=== PATIENT | female | born 1955 | race American Indian/Alaskan Native ===

== ENCOUNTER 2017-06-22 10:03 | Outpatient (CLI) | payer OTHER ==
--- NOTE | 2017-06-22 12:32 | Ultrasound Report ---
ULTRASOUND GUIDED NEEDLE CORE BIOPSY OF A Right AXILLARY LYMPH NODE WITH CLIP PLACEMENT : 06/22/17 10:03:00 CLINICAL: Newly diagnosed right breast cancer with a suspicious right axillary lymph node. COMPARISON :None available. FINDINGS: The procedure was explained to the patient and informed consent was obtained. Ultrasound demonstrated several right axillary lymph nodes with minimal cortical thickening. The skin in the axilla was prepped with Betadine and anesthetized with 1% lidocaine. Ultrasound guided needle core biopsy of the thickest portion of one of the lymph nodes was performed through a small dermatotomy using 2% lidocaine with epinephrine for deep anesthesia and a 18-gauge Achieve biopsy device. 3 samples were obtained and placed in formalin. A clip was deployed within the lymph node. Hemostasis was achieved with minimal pressure and a sterile dressing was applied. The patient tolerated the procedure well and there were no apparent complications. She was discharged in good condition and was given instructions for wound care and followup. IMPRESSION: Uncomplicated ultrasound-guided needle core biopsy of a right axillary lymph node with clip placement.
== END 2017-06-22 10:04 | disposition home or self-care (01) ==
LOC: SPVWC 10:03
PROVIDERS: ATTEND Surgery
DX: C50.411 Malignant neoplasm of upper-outer quadrant of right female breast (principal)
CPT/HCPCS: 38505; 76942; 88305; A4648; 38525

== ENCOUNTER 2017-06-28 15:08 | Outpatient (CLI) | payer OTHER | END 2017-06-28 15:09 | disposition home or self-care (01) | LOC: LABHHL 15:08 | PROVIDERS: ATTEND Surgery | DX: C50.911 Malignant neoplasm of unspecified site of right female breast (principal) | CPT/HCPCS: 88305; 88341; 88342; 88361 ==

== ENCOUNTER 2017-07-03 13:39 | Outpatient (CLI) | payer OTHER ==
--- NOTE | 2017-07-03 14:30 | Ultrasound Report ---
Sonogram left breast: History: Malignant neoplasm of upper outer quadrant right breast. Findings: Normal breast parenchyma. No cystic or solid mass. Benign lymph node measuring 1.8 x 0.8 cm and left axilla. Impression: Essentially negative sonogram.
== END 2017-07-03 13:40 | disposition home or self-care (01) ==
LOC: SPVWC 13:39
PROVIDERS: ATTEND Surgery
DX: C50.411 Malignant neoplasm of upper-outer quadrant of right female breast (principal)

== ENCOUNTER 2017-07-25 09:10 | Observation (INO) | payer OTHER ==
[~2017-07-25 09:10] MED LIST: ANCEF/STERILE WATER 2 GM/20 ML IV NR; NACL 0.9% 1000 ML 1,000 ML IV SCH; NEURONTIN PO NR; PEPCID PO NR; SUBLIMAZE IV ONE; VERSED IV NR
[2017-07-25 10:05] LABS: Basophils % (Auto) 1.1 % (0.0-1.8); Eosinophils % (Auto) 3.2 % (0.0-4.3); Hematocrit 41.2 % (30.3-42.9); Hemoglobin 13.4 gm/dl (10.1-14.3); Mean Corpuscular HGB Conc 32 % (30-34); Mean Corpuscular Hemoglobin 26 pg (28-32); Mean Corpuscular Volume 81 fl (79-97); Platelet Count 351 K/mm3 (140-440); Red Blood Count 5.11 M/mm3 (3.65-5.03); Red Cell Distribution Width 14.6 % (13.2-15.2); White Blood Count 5.4 K/mm3 (4.5-11.0)
[2017-07-25] MEDS ORDERED: ZEMURON IV ONE (10:08)
[2017-07-25] MEDS ORDERED: XYLOCAINE MPF 2% ONE (10:08)
[2017-07-25] MEDS ORDERED: DECADRON ONE ×2 (10:09→12:28)
[2017-07-25] MEDS ORDERED: MARCAINE-EPI 0.5%-1:200,000 INFILTRATI ONE (10:09)
[2017-07-25] MEDS ORDERED: DILAUDID ONE ×2 (10:09→16:34)
[2017-07-25] MEDS ORDERED: DIPRIVAN 10 MG/ML IV ONE (10:09)
--- NOTE | 2017-07-25 10:33 | Anesthesia Day of Surgery ---
Anesthesia Day of Surgery - Day of Surgery Patient Examined: Yes Patient H&P Reviewed: Yes Patient is NPO: Yes
[2017-07-25] MEDS ORDERED: ZOFRAN IV PRN ×2 (10:34→15:48)
[2017-07-25] MEDS ORDERED: DILAUDID IV PRN ×2 (10:34→16:25)
--- NOTE | 2017-07-25 10:34 | Anesthesia Consultation ---
Anesthesia Consult and Med Hx Date of service: 07/25/17 - Airway Anesthetic Teeth Evaluation: Dentures, Edentulous ROM Head & Neck: Adequate Mental/Hyoid Distance: Adequate Mallampati Class: Class II Intubation Access Assessment: Probably Good - Pulmonary Exam CTA: Yes - Cardiac Exam Cardiac Exam: RRR - Pre-Operative Health Status ASA Pre-Surgery Classification: ASA3 Proposed Anesthetic Plan: General Nerve Block: PEC - Pulmonary Hx Smoking: No Hx Asthma: Yes (RARE INHALER USE) Hx Sleep Apnea: No (ANKITA PRE SCREEN LOW RISK.) - Cardiovascular System Hx Hypertension: Yes (X 3 YRS) - Endocrine Hx Renal Disease: No Hx Liver Disease: No Hx Non-Insulin Dependent Diabetes: No Hx Hyperthyroidism: No - Hematic Hx Anemia: No (LOW IRON LEVELS) - Other Systems Hx Cancer: Yes (RIGHT BREAST)
[2017-07-25] MEDS ORDERED: BACITRACIN ONE (11:51)
[2017-07-25] MEDS ORDERED: GARAMYCIN ONE (11:52)
[2017-07-25] MEDS ORDERED: MARCAINE 0.5% 0 ML INFILTRATI ONE (11:53)
[2017-07-25] MEDS ORDERED: MARCAINE 0.25% INFILTRATI ONE (11:53)
[2017-07-25] MEDS ORDERED: XYLOCAINE 1% 20 mL ONE (11:54)
[2017-07-25] MEDS ORDERED: NACL P/F VIAL (10 ML) 10 ML ONE (11:54)
[2017-07-25] MEDS ORDERED: WATER FOR IRRIG STERILE IR ONE (12:00)
[2017-07-25] MEDS ORDERED: NACL P/F VIAL (10 ML) IV ONE (12:00)
[2017-07-25] MEDS ORDERED: METHYLENE BLUE IV ONE (12:00)
[2017-07-25] MEDS ORDERED: ANCEF/STERILE WATER 2 GM/20 ML IV ONE (12:30)
[2017-07-25] MEDS ORDERED: METHYLENE BLUE ONE (12:30)
[2017-07-25] MEDS ORDERED: NACL 0.9% 1000 ML 0 ML ONE (13:33)
--- NOTE | 2017-07-25 13:59 | Mammography Report ---
Specimen radiograph. Findings: A radiograph of 2 specimens is presented. In the larger specimen, there are innumerable pleomorphic microcalcifications centrally as well as 2 central surgical clips. In the second smaller of the 2 specimens, there is no evidence of a clip.
[2017-07-25] MEDS ORDERED: ZOFRAN ONE (14:38)
[2017-07-25] MEDS ORDERED: ROBINUL ONE (14:38)
[2017-07-25] MEDS ORDERED: NEOSTIGMINE ONE (14:38)
--- NOTE | 2017-07-25 14:52 | Operative Report ---
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 Centeno Anesthesia: General Findings: Known right breast cancer mass from the 9:30-12:00 position 1-2 cm from the nipple; 5 SLNs and negative for malignancy on frozen EBL: Minimal Complications: None Disposition: Proceeded with right tissue sanitation manager by Dr. Morales Indications for operative procedure: This is a 62-year-old -[place] lady with newly diagnosed right breast cancer of the upper outer quadrant, DCIS. Recommendations were to proceed with a right total mastectomy and not breast conservation given the size of breast cancer area. Patient wished to proceed with immediate plastic reconstructive surgery as we;;. Patient was consented for the above procedure. Procedure in detail: Anesthesia placed right pectoral muscle block. Patient was taken to the operating room and was laid supine. General anesthesia was administered. Travis catheter was placed. Bilateral breast and right axilla were prepped and draped in the normal sterile operative fashion. The right nipple was injected with radioisotope and with 1 mL of methylene blue dye mixed with saline. Right nipple was massaged. Gamma probe was inserted into the right axilla with area of sentinel lymph node location identified. Typical mastectomy markings were made. Skin incision was made with a 10 blade knife with dissection taken down to the subcutaneous tissues. First beginning raising of the superior flap to the level of the clavicle and posteriorly down to the pectoralis muscle followed by raising of the medial flap to the level of the sternum taken down posteriorly to pectoralis muscle follwed by raising of the lateral flap to the level of the latissimus dorsi muslce taken down posteriorly. Gamma probe was inserted into the axilla and 5 sentinel lymph nodes were identified and dissected free with blue dye present in 3 lymph nodes and sent to pathology with findings negative for malignancy on frozen section. Then continued with raising of the inferior flap to the level of inframammary fold taking down posteriorly to the pectoralis muscle. Mastectomy specimen was removed from the pectoralis muscle without incident. The specimen was appropriately marked and sent to radiology with findings of 2 clips present as well as numerous pleomorphic irregular microcalcifications. Specimen sent to pathology. Breast cavity was irrigated and suctioned. Hemostasis was noted. Dr. Christine then continued with placement of right tissue sanitation manager.
[2017-07-25] MEDS ORDERED: BENADRYL PO PRN (15:48)
[2017-07-25] MEDS ORDERED: SODIUM CHLORIDE FLUSH SYRINGE 10 ML IV PRN (15:48)
[2017-07-25] MEDS ORDERED: REGLAN PO PRN (15:48)
[2017-07-25] MEDS ORDERED: TORADOL IV PRN (15:48)
[2017-07-25] MEDS ORDERED: MOTRIN PO PRN (15:48)
[2017-07-25] MEDS ORDERED: TYLENOL PO PRN (15:48)
--- NOTE | 2017-07-25 15:48 | Post Operative Note ---
Pre-op diagnosis: right breast cancer Post-op diagnosis: same Findings: right mastectomy defect Procedure: right breast reconstruction with tissue veterinary bacteriologist and mesh Anesthesia: GETA Surgeon: VIVIANA MONTIEL Estimated blood loss: minimal Pathology: none Condition: stable Disposition: PACU
[2017-07-25] MEDS ORDERED: MORPHINE IV PRN (16:49)
--- NOTE | 2017-07-25 16:49 | Post Anesthesia Evaluation ---
- Post Anesthesia Evaluation Patient Participated: Yes Airway Patent: Yes Stable Respiratory Function: Yes Nausea/Vomiting: No Temp > 96.8F: Yes Pain Manageable: Yes Adequeate Hydration: Yes Anesthesia Complications: No Block Receding Appropriately: Not Applicable Patient on Ventilator: No
[2017-07-25] MEDS ORDERED: LACTATED RINGERS 1,000 ML ONE (16:58)
[2017-07-25] MEDS: LACTATED RINGERS 1,000 ML IV SCH ×2 (16:58→23:49)
--- NOTE | 2017-07-25 19:55 | Operative Report ---
PREOPERATIVE DIAGNOSIS: Right breast cancer. POSTOPERATIVE DIAGNOSIS: Right breast cancer. PROCEDURE: 1. Right breast reconstruction using tissue sorter packer, CPT code 23658-Y. 2. Implantation of biological mesh, FlexHD for right breast reconstruction, CPT code 66245-T. SURGEON: Flaco Christine MD. EXTRUDER OPERATOR VERTICAL: None. ANESTHESIA: General. OPERATIVE INDICATIONS: The patient is a 62-year-old female who was referred to me for breast reconstructive options. She is planning on undergoing a right mastectomy with Dr. Pedroza and was inquiring about possible reconstruction. She wanted the fastest reconstruction and the quickest recovery possible. We went over all options including delayed versus immediate reconstruction and implant based versus autologous reconstruction. She ultimately selected a tissue sorter packer reconstruction. Risks and benefits were discussed with the patient and she agreed. OPERATIVE DETAILS: After informed consent was obtained, the patient was brought to the operating room and placed supine on the operating table. Preoperative antibiotics and general anesthesia were administered. Dr. Pedroza began her portion of the operation, which should be dictated separately. When I entered the room, Dr. Pedroza performed her right mastectomy and sentinel lymph node biopsies, all margins were cleared and she said to progress with reconstruction. I assessed the defect, there was a large incision transversely across the chest and into the axilla. Hemostasis had been achieved. I measured the base width of the chest wall, it was approximately 13-14 cm, and began by lifting up the pectoralis and getting into the subpectoral plane using electrocautery and divided the inferior border of the pectoralis. We then got a [employer] High Profile 500 mL tissue sorter packer with serial #[id number] and placed that in the subpectoral pocket and secured in place with 2-0 PDS sutures along the suture tabs. I then took a piece of FlexHD pliable perforated medium contour tissue, it was 11 x 20 cm and soaked in antibiotic irrigation and then placed it over the inferior border of the implant. I secured it medially to the edge of the pectoralis with 2-0 Vicryl interrupted sutures and then inset it along the new inframammary fold to the chest wall using 2-0 Vicryl interrupted sutures. Of note, I did remove all of the air from the tissue sorter packer and did not place any saline in it as it appeared that the closure was going to be tight. I then closed the pectoralis and FlexHD together using a running 2-0 Vicryl suture. Everything was irrigated copiously with antibiotic irrigation and hemostasis was achieved. A 15-German Lev drain was placed through the right axilla into the prepectoral space and secured in place. I then began with closure. Because of the tension on the closure because of the amount of skin removed, I did have to do some progressive tension sutures using 2-0 Vicryl sutures to bring the skin flaps towards the midline. This was able to reduce most of the tension. I then closed using 2-0 Vicryl interrupted deep dermals to again take some more tension off the closure and then using a running 3-0 Monocryl Quill barbed suture to close the skin. Dermabond was applied. The patient had a sterile dressing and breast binder applied. She tolerated the procedure well, was awakened from general anesthesia, transferred to PACU in stable condition. ESTIMATED BLOOD LOSS: Less than 20 mL. COMPLICATIONS: None. FINDINGS: Right breast defect, status post mastectomy. JOB# [id number] Linda/[place]
[2017-07-25] MEDS: ANCEF/NS 1 GM/50 ML 1 GM/50 ML BAG IV SCH (20:25)
[2017-07-25] MEDS: COLACE PO SCH (21:09)
[2017-07-26] MEDS: ANCEF/NS 1 GM/50 ML 1 GM/50 ML BAG IV SCH ×2 (03:57→12:10)
--- NOTE | 2017-07-26 08:11 | Progress Note ---
Assessment and Plan This is a 62 year old lady POD#1 right total mastectomy with SLNB and tissue storm sash maker placement. 1. Pain well controlled. 2. Right chest incision healing well. 3. LEYDI drain education. 4. D/C home today. Subjective Date of service: 07/26/17 Principal diagnosis: Right breast cancer of the upper outer quadrant Interval history: This is a 62 year old lady POD#1 right total mastectomy with SLNB and tissue storm sash maker placement for stage 0 breast cancer. Objective - Constitutional Vitals: Vital Signs - 12hr 07/25/17 07/25/17 07/26/17 20:15 23:40 04:40 Temperature 97.8 F 98.4 F 98.8 F Pulse Rate 71 60 65 Respiratory 20 20 20 Rate Blood Pressure 144/76 137/72 132/60 [Left] General appearance: Present: no acute distress - EENT Eyes: PERRL, EOM intact ENT: hearing intact, clear oral mucosa Ears: bilateral: normal - Neck Neck: supple, normal ROM - Respiratory Respiratory effort: normal Respiratory: bilateral: CTA - Breasts Breasts: other (right chest incision healing well, skin well perfused, no fluid collection; leydi drain to bulb suction) Extremities: no ischemia, pulses intact, pulses symmetrical, No edema, normal temperature, normal color, Full ROM - Gastrointestinal General gastrointestinal: Present: soft, non-tender, non-distended Rectal Exam: deferred - Genitourinary Female genitourinary: deferred - Integumentary Integumentary: clear, warm, dry - Musculoskeletal Musculoskeletal: strength equal bilaterally - Neurologic Neurologic: CNII-XII intact, moves all extremities - Psychiatric Psychiatric: appropriate mood/affect, intact judgment & insight, memory intact, cooperative - Labs CBC & Chem 7: 07/25/17 09:45 07/25/17 09:45 Labs: Abnormal lab results 07/25/17 Range/Units 09:45 RBC 5.11 H (3.65-5.03) M/mm3 MCH 26 L (28-32) pg Lymph % (Auto) 43.9 H (13.4-35.0) %
[2017-07-26] MEDS: COLACE PO SCH (10:35)
--- NOTE | 2017-07-26 13:22 | Progress Note ---
Subjective Date of service: 07/26/17 Principal diagnosis: Right breast cancer of the upper outer quadrant Interval history: 1st POD after mastectomy Patient is in the bed, comfortable. Pain is well under control. No nausea or vomiting. Ambulated well. No anesthesia complications. Being discharged by the surgeon Objective - Constitutional Vitals: Vital Signs - 12hr 07/26/17 07/26/17 04:40 07:15 Temperature 98.8 F 98.7 F Pulse Rate 65 76 Respiratory 20 20 Rate Blood Pressure 132/60 144/62 [Left] - Labs CBC & Chem 7: 07/25/17 09:45 07/25/17 09:45
[2017-07-26 14:29] VITALS: BP 130/60
== END 2017-07-26 13:41 | disposition home or self-care (01) ==
LOC: OR 09:10 → OB 15:48
PROVIDERS: ADMIT Surgery; ATTEND Surgery
DX: C50.411 Malignant neoplasm of upper-outer quadrant of right female breast (principal); Z90.710 Acquired absence of both cervix and uterus; Z80.0 Family history of malignant neoplasm of digestive organs
CPT/HCPCS: 15777; 19303; 19357; 36415; 64450; 76098; 84132; 85025; 88307; 88309; 88331; 88333; 88342; 96365; 96375; C1789; G0378; J0690; J1100; J1170; J2250; J2405; J2704; J2710; J3010; J7030; J7120; Q4116; Q9968; J1580

== ENCOUNTER 2017-11-20 13:22 | Outpatient (CLI) | payer OTHER ==
--- NOTE | 2017-11-20 16:35 | Mammography Report ---
BONE DEXA:11/20/17 13:22:00 CLINICAL: Postmenopausal. No comparison. TECHNIQUE: Two site bone DEXA performed on an Hologic scanner. FINDINGS: The average BMD of the lumbar spine L1-L4 is 1.106g/cm squared with a T-score of -0.4 and a Z-score of +1.3. The average BMD of the left hip is 0.870g/cm squared with a T-score of -1.0 and a Z-score of -0.2. The left femoral neck BMD is 0.661g/cm squared with a T score of -2.0 and a Z score of -0.9 IMPRESSION: 1. WHO classification: Normal with average fracture risk based on lumbar spine measurements. 2. WHO classification: Osteopenia with increased fracture risk based on left femoral neck measurements. RECOMMENDATION: Clinical correlation and routine screening. DEFINITIONS: BMD = Bone Mineral Density T-score = BMD related to mean peak bone mass of young adult (mean expressed in Standard Deviation) Z-score = Age matched BMD expressed in SD World Health Organization (WHO) Diagnostic Criteria Normal T-score > -1 SD Osteopenia T-score between -1 and -2.4 SD Osteoporosis T-score -2.5 SD or below NOTE: BMD is not the only risk factor for fracture. One should also consider factors such as the patient's age, risk of falling, previous osteoporotic fracture, family history of osteoporotic fractures, current smoker, and low body weight. Z-scores are not calculated if >80 years of age.
== END 2017-11-20 13:23 | disposition home or self-care (01) ==
LOC: SPVWC 13:22
PROVIDERS: ATTEND Surgery
DX: M85.88 Other specified disorders of bone density and structure, other site (principal); C50.411 Malignant neoplasm of upper-outer quadrant of right female breast; I10 Essential (primary) hypertension; E78.00 Pure hypercholesterolemia, unspecified; J45.909 Unspecified asthma, uncomplicated; D64.9 Anemia, unspecified; Z78.0 Asymptomatic menopausal state
CPT/HCPCS: 77080

== ENCOUNTER 2018-04-01 15:32 | Outpatient (CLI) | payer OTHER ==
--- NOTE | 2018-04-01 16:29 | XRay Report ---
RIGHT SHOULDER: Pain Routine views demonstrate normal bony and soft tissue structures with normal joint alignment of the shoulder. IMPRESSION: Normal study.
--- NOTE | 2018-04-01 16:33 | XRay Report ---
Lumbar spine: Pain. There is a dextroscoliosis of the lumbar spine. There is diffuse anterior spondylosis with mild posterior spondylosis at L4-5. Vertebral height and alignment is maintained. The disc spaces however are moderately narrowed at L3-4, L4-5, and L5-S1 levels. There is bony proliferation of the apophyseal joints from L3-S1. The bones appear mildly demineralized. Impression: 1. Degenerative bone and disc changes from L3-S1 as described. 2. Dextroscoliosis.
== END 2018-04-01 15:33 | disposition home or self-care (01) ==
LOC: SPVIMAG 15:32
DX: M47.896 Other spondylosis, lumbar region (principal); M81.0 Age-related osteoporosis without current pathological fracture; M25.511 Pain in right shoulder
CPT/HCPCS: 72100

== ENCOUNTER 2018-06-18 13:27 | Outpatient (CLI) | payer OTHER ==
--- NOTE | 2018-06-18 14:33 | Mammography Report ---
LEFT DIGITAL DIAGNOSTIC MAMMOGRAM WITH CAD: 06/18/18 13:27:00 CLINICAL: Breast cancer survivor status post right mastectomy in 2017. COMPARISON:06/07/17 FINDINGS: The breast is heterogeneously dense with a stable fibroglandular pattern.No mass, architectural distortion or suspicious calcifications. IMPRESSION: No mammographic evidence of malignancy. BI-RADS CATEGORY: 1 -- Negative RECOMMENDATION: Routine mammographic screening in one year. ACR BI-RADS MAMMOGRAPHIC CODES: 0 = Needs additional imaging evaluation; 1 = Negative; 2 = Benign; 3 = Probably benign; 4 = Suspicious; 5 = Malignant; 6 = Known biopsy-proven malignancy COMMENT: 1. Dense breast tissue, i.e., adenosis, fibrocystic changes, etc., may obscure an underlying neoplasm. 2. Approximately 10% of cancers are not detected with mammography. 3. A negative mammography report should not delay biopsy if a clinically suspicious mass is present. COMMENT: Patient follow-up letters are generated via our Next Caller Nurse Navigator application.
== END 2018-06-18 13:28 | disposition home or self-care (01) ==
LOC: SPVWC 13:27
PROVIDERS: ATTEND Surgery
DX: C50.411 Malignant neoplasm of upper-outer quadrant of right female breast (principal); I10 Essential (primary) hypertension; E78.00 Pure hypercholesterolemia, unspecified; J45.909 Unspecified asthma, uncomplicated; Z90.710 Acquired absence of both cervix and uterus

== ENCOUNTER 2021-06-28 08:22 | Outpatient (CLI) | payer MEDICARE, OTHER ==
--- NOTE | 2021-06-28 09:42 | Mammography Report ---
DIGITAL SCREENING MAMMOGRAM WITH CAD, 06/28/2021 CLINICAL INFORMATION / INDICATION: Routine screening mammography. LEFT MAMMO SCREENING Z12.31 TECHNIQUE: Digital left 2D mammography was obtained in the craniocaudal and mediolateral oblique pro jections. This examination was interpreted with the benefit of Computer-Aided Detection analysis. COMPARISON: 06/22/2020, 06/19/2019 FINDINGS: Breast Density: The breasts are heterogeneously dense, which may obscure small masses. No dominant mass, suspicious calcifications, or architectural distortion in the left breast. No interval change. IMPRESSION: No mammographic evidence of malignancy. Follow up recommendation: Routine yearly BI-RADS Category 1: Negative. A "normal" or negative report should not discourage follow up or biopsy of a clinically significant f inding. A written summary of these findings will be mailed to the patient. The patient will be entered into a mammography reporting system which will generate a reminder letter for the patient's next appointmen t at the appropriate interval. The [employer] recommends yearly mammograms starting at age 40 and continuing as l juliette as a woman is in good health. Breast MRI is recommended for women with an approximate 20-25% or greater lifetime risk of breast cancer, including women with a strong family history of breast or ova helena cancer or who have been treated for Hodgkin's disease. Signer Name: Bernadette Galvez MD Signed: 06/28/2021 9:37 AM Workstation Name: [id number]
== END 2021-06-28 08:23 | disposition home or self-care (01) ==
LOC: SPVWC 08:22
PROVIDERS: ATTEND Surgery
DX: Z12.31 Encounter for screening mammogram for malignant neoplasm of breast (principal)

== ENCOUNTER 2022-07-26 08:28 | Outpatient (CLI) | payer MEDICARE ==
--- NOTE | 2022-07-26 13:11 | Mammography Report ---
DIGITAL SCREENING MAMMOGRAM WITH CAD, 07/26/2022 CLINICAL INFORMATION / INDICATION: Routine screening mammography. TECHNIQUE: Digital left 2D mammography was obtained in the craniocaudal and mediolateral oblique pro jections. This examination was interpreted with the benefit of Computer-Aided Detection analysis. COMPARISON: 07/06/2014 through 06/28/2021. FINDINGS: Breast Density: The breasts are heterogeneously dense, which may obscure small masses. No dominant mass, suspicious calcifications, or architectural distortion in the left breast. No interval change. IMPRESSION: No mammographic evidence of malignancy. Follow up recommendation: Routine yearly screening mammogram. - The ACR recommends yearly screening MRI in patients with a personal history of breast cancer who cherry ve dense fibroglandular tissue as well in patients who were diagnosed with breast cancer under the ag e of 50. BI-RADS Category 1: NEGATIVE A "normal" or negative report should not discourage follow up or biopsy of a clinically significant f inding. A written summary of these findings will be mailed to the patient. The patient will be entered into a mammography reporting system which will generate a reminder letter for the patient's next appointmen t at the appropriate interval. The [employer] recommends yearly mammograms starting at age 40 and continuing as l juliette as a woman is in good health. Breast MRI is recommended for women with an approximate 20-25% or greater lifetime risk of breast cancer, including women with a strong family history of breast or ova helena cancer or who have been treated for Hodgkin's disease. Signer Name: Nba Quesada MD Signed: 07/26/2022 1:07 PM Workstation Name: [id number]
== END 2022-07-26 08:29 | disposition home or self-care (01) ==
LOC: SPVWC 08:28
PROVIDERS: ATTEND Surgery
DX: Z12.31 Encounter for screening mammogram for malignant neoplasm of breast (principal)